=== PATIENT | male | born 1955 | race Caucasian/White ===

== ENCOUNTER 2023-09-18 21:46 | Inpatient (IN) | payer OTHER, SELFPAY ==
[2023-09-18] VITALS (10 sets, daily range): BP systolic 133–195; BP diastolic 76–119; BMI 31.8
--- NOTE | 2023-09-18 16:33 | ED.GENMED ---
History of Present Illness
General
Chief Complaint: Withdrawal Symptoms
Time Seen by Provider: 09/18/23 16:15
Travel History
Have you had any contact with someone who has COVID-19?: No
Do you have any symptoms of coronavirus? Fever > 100 degrees, chills, cough, shortness of breath, sore throat, loss of taste or smell, muscle aches, or headache?: No
History of Present Illness
History of Present Illness:
67-year-old male with history of alcoholic cardiomyopathy and CHF as well as long-term alcohol abuse presents to the emergency department for evaluation of tremors. He states he has been drinking heavily for at least the past 10 months, his last
significant alcohol intake was last night but he did take 1 drink at approximately noon today to help with the 'shakes'. He reports nausea and headaches as well as profound tremors. Denies any suicidal or homicidal ideation. Denies any visual or
auditory hallucinations.
Past History
Past History
ED Past Medical History: HTN
ED Past Surgical History: Orthopedic
Social History
Tobacco: Non-smoker
Alcohol: Occasional
Drug: None
Personal:
Living: with family
Employment: Employed
Review of Systems
Review of Systems
Allergies reviewed?: Yes
All Other Systems: ROS reviewed and negative except as documented in HPI and ROS
Phy Exam
Physical Exam
Physical Exam:
GEN: Ill-appearing, tremulous, nondiaphoretic
Eyes: PERRLA, EOMs intact, no scleral icterus
HENT: NCAT, oral mucosa moist
Lungs: Tachypneic, otherwise clear lungs
Cardiac: RRR, no M/R/G, no peripheral edema. Radial pulses 2+ bilat
Abdomen: S, NT, ND, NABS, no masses or hepatosplenomegaly
Neuro: AO x 3, no focal deficits to BUE/BLE, widespread tremors at rest
MSK: No gross deformity or ecchymosis. No edema. No digital clubbing
Skin: No rashes, petechiae. Normal color, no pallor or jaundice.
Psych: Calm, cooperative, proper hygiene
Course
Orders/Labs/Results
Orders:
Orders
09/18/23 Dinner
Cholesterol Lowering
At Your Request: Full Participation
Cholesterol Lowering: Sodium, 2 Gram
09/18/23 16:33
Lorazepam [Ativan] 1 mg IV NOW STA
Thiamine Injection 200 mg IV NOW STA
09/18/23 16:35
Lactated Ringers [Lr] 1,000 ml IV BOLUS
09/18/23 16:37
Electrocardiogram (*1) Urgent
Reason for Study: Shortness of Breath
EKG- Treatment ONCE
09/18/23 16:51
FOLic ACID [Folvite] 1 mg 0.9% Sodium Chloride 50 ml [Nss] 50 ml IV NOW
09/18/23 16:52
Phenobarbital Sodium [Phenobarbital] 260 mg 0.9% Sodium Chloride 100 ml [Nss] 100 ml IV NOW
09/18/23 17:07
Alcohol Urgent
B-Hydroxybutyrate Urgent
Complete Blood Count/With Diff Urgent
Comprehensive Metabolic Panel Urgent
Lipase Urgent
Magnesium Urgent
Phosphorus Urgent
Prothrombin Time Urgent
09/18/23 17:59
Lorazepam [Ativan] 2 mg IV NOW STA
09/18/23 18:09
Urinalysis Routine
Date Specimen was Collected: 09/18/23
Time Specimen was Collected: 16:51
09/18/23 21:18
Admit/Transfer Patient As Directed
Co-Sign Provider:
Level of Care: Inpatient admission
Assign to:: IMU- Intermediate Care
Physician / Group: richmond osullivan
Diagnosis: alcohol withdrawal/ abuse
Reason for Hospitalization: alcohol withdrawal/ abuse
Expected length of stay greater than two midnights?: Yes
ELOS- Estimated Length of Stay in days: 5
I certify the patient meets the requirements for IP care: Yes
Code Status As Directed
Resuscitation Status: Full Code
09/18/23 23:19
0.9% Sodium Chloride [Nss (Preservative Free)] See Protocol IV PRN PRN
Acetaminophen [Tylenol] 650 mg PO Q4HPRN PRN
FOLic ACID [Folvite] 1 mg 0.9% Sodium Chloride 50 ml [Nss] 50 ml IV DAILYPRN
HydrALAZINE [Apresoline] 10 mg IV Q6HPRN PRN
Lorazepam [Ativan] 1 mg IV Q1HPRN PRN
Lorazepam [Ativan] 1 mg PO Q2HPRN PRN
Lorazepam [Ativan] 2 mg IV Q1HPRN PRN
Ondansetron Injectable [Zofran] 4 mg IV Q6HPRN PRN
09/18/23 23:19
Case Management Consult Once
Case Management Consult: Other
Comment: Substance abuse counseling
DIETARY CONSULT Routine
Reason for Consult: Nutrition support, possible refeeding guidelines
GGTP Urgent
Magnesium Urgent
PTT Urgent
Phosphorus Urgent
Prothrombin Time Urgent
Urinalysis Routine
Date Specimen was Collected: 09/18/23
Time Specimen was Collected: 23:20
Urine Drug Abuse Screen Routine
Date Specimen was Collected: 09/18/23
Time Specimen was Collected: 23:20
Activity As Directed
Activity Level: As Tolerated
Intake/ Output As Directed
Frequency: Per unit guidelines
MSAS SCORE As Directed
MSAS Score 0-4: Repeat MSAS every 2 hours until 0-4 for three consecutive assessments, then every 4 hours x 48
hours.
MSAS Score 5-7: For MILD withdrawl symptoms. Repeat MSAS and RASS every 2 hours
MSAS Score 8-11: For MODERATE withdrawal symptoms. Repeat MSAS and RASS every 1 hour. Consider ICU or IMU
level of care.
MSAS Score > 11: For SEVERE withdrawal symptoms. Repeat MSAS and RASS every 1 hour. Notify provider, consider
ICU level of care.
MSAS Additional Instructions: If no improvement or no decrease in score from severe to moderate within 12
hours, consult psychiatry
MSAS Notify Provider: Notify provider if patient requires more than 10 mg of Lorazepam in eight hour period.
Vital Signs As Directed
Frequency: Per unit guidelines
Weight As Directed
Frequency: Daily
Ot Eval And Treat Routine
Pt Eval And Treat Routine
Activity Level: As Tolerated
DX Deep Vein Thrombosis Video Routine
09/19/23 00:00
Thiamine Injection 200 mg IV Q8
09/19/23 06:00
Cardiovascular Evaluation IN AM
Complete Blood Count/With Diff IN AM
Comprehensive Metabolic Panel IN AM
09/19/23 08:00
Aspirin Low Dose EC [Aspir Low (Enteric Coated)] 81 mg PO DAILY
Atorvastatin [Lipitor] 40 mg PO DAILY
Escitalopram Oxalate [Lexapro] 10 mg PO DAILY
FOLic ACID [Folvite] 1 mg PO DAILY
Metoprolol Xl [Toprol Xl] 50 mg PO DAILY
Pantoprazole [Protonix IV] 40 mg IV DAILY
Phenobarbital Sodium [Phenobarbital] 97.5 mg IV TID
Valsartan [Diovan] 80 mg PO DAILY
09/19/23 18:00
Enoxaparin Sodium [Lovenox] 40 mg SC QPM
09/20/23 06:00
Complete Blood Count/With Diff IN AM
Comprehensive Metabolic Panel IN AM
09/21/23 06:00
Complete Blood Count/With Diff IN AM
Comprehensive Metabolic Panel IN AM
09/21/23 08:00
Phenobarbital [Luminal] 64.8 mg PO TID
09/22/23 06:00
Complete Blood Count/With Diff IN AM
Comprehensive Metabolic Panel IN AM
09/22/23 08:00
Thiamine HCl [Vitamin B1] 100 mg PO BID
09/23/23 08:00
Phenobarbital [Luminal] 32.4 mg PO TID
Abnormal Lab Results
09/18/23
17:07
RDW 14.8 H %
(11.5-14.5)
Absolute Monos (auto) 0.7 H 10^3/uL
(0.1-0.6)
Immature Gran % 0.6 H %
(0-0.5)
Monocytes % 10.2 H %
(1.7-9.3)
BUN 22 H mg/dl
(9-20)
B-Hydroxybutyrate 0.39 H mmol/L
(0.02-0.27)
09/18/23 17:07
09/18/23 17:07
Vital Signs
Initial and Last Documented VS:
Initial Vital Signs
Temp Pulse Resp BP Pulse Ox
97.5 F 91 18 195/119 97
09/18/23 16:03 09/18/23 16:03 09/18/23 16:03 09/18/23 16:03 09/18/23 16:03
Last Documented Vital Signs
Temp Pulse Resp BP Pulse Ox
97.5 F 73 20 133/76 95
09/18/23 16:03 09/18/23 22:15 09/18/23 22:15 09/18/23 22:00 09/18/23 22:15
MDM/Problems Addressed
MDM/Problems Addressed:
Patient's initial presentation concerning for significant alcohol withdrawal however he responded quite well to benzodiazepines and phenobarbital. He does not exhibit clinical signs or symptoms of acute decompensated congestive heart failure. He
was seen by Mary ramos with the hope of placing him in an inpatient detox facility however this will not be feasible tonight thus we will admit him to the hospitalist service for further alcohol withdrawal treatment
*Critical Care Note
Total Time (30-74mins, 75-104mins- exclusive of procedures): Not Applicable
ED Attending Note
-
Portions of this chart may have been created with voice recognition software.� Occasional wrong word or��sound alike� substitutions may have occurred due to the inherent limitations of voice recognition software.
Discharge Plan
Departure
Patient Disposition: Admit
Date of Disposition: 09/18/23
Time of Disposition: 20:45
Admit to: Telemetry
Presentation/result/management discussed w/ accepting MD/DO: Hospitalist
Discharge Problem:
Alcohol withdrawal
Interventions
Interventions:
*Risk Screen - Suicide Last Done: 09/18/23 17:26
*General Assessment Last Done: 09/18/23 17:26
*Neglect/Abuse Screening Last Done: 09/18/23 17:26
*ED COVID-19 Vaccine History Last Done: 09/18/23 17:26
ED- Neurological Assessment Last Done: 09/18/23 17:26
ED-Psychological Assessment Last Done: 09/18/23 17:26
[2023-09-18] MEDS: ATIVAN 1 MG IV (17:00)
[2023-09-18] MEDS: THIAMINE INJECTION 200 MG IV ×2 (17:02→23:55)
[2023-09-18] MEDS: LR 1000 IV (17:05)
[2023-09-18] MEDS: PHENOBARBITAL 104 MG IV ×2 (17:20→23:17)
[2023-09-18 17:21] LABS: % Basophils 0.9 % (0-2); % Eosinophils 2.7 % (0-6); % Immature Granulocytes 0.6 % (0-0.5); % Lymphocytes 23.8 % (20.5-51.1); % Monocytes 10.2 % (1.7-9.3); % Neutrophils 61.8 % (42.2-75.2); Absolute Basophils 0.1 10^3/uL (0-0.2); Absolute Eosinophils 0.2 10^3/uL (0-0.7); Absolute Lymphocytes 1.6 10^3/uL (1.2-3.4); Absolute Monocytes 0.7 10^3/uL (0.1-0.6); Absolute Neutrophils 4.1 10^3/uL (1.4-6.5); Hemoglobin 15.2 g/dL (13.0-18.0); Mean Corp Hgb Conc. 34.5 g/dL (33.0-37.0); Mean Corpuscular Hgb 29.3 pg (27.0-31.0); Mean Corpuscular Volume 84.9 fL (80.0-94.0); Mean Platelet Volume 8.8 fL (7.4-10.4); Nucleated Red Blood Cells % 0 % (-); Platelet Count 134 10^3/uL (130-400); Red Blood Cell Count 5.18 10^6/uL (4.70-6.10); Red Cell Dist. Width 14.8 % (11.5-14.5); White Blood Cell Count 6.7 10^3/uL (4.8-10.8)
[2023-09-18 17:30] LABS: ALT (SGPT) 39 U/L (0-50); AST (SGOT) 46 U/L (17-59); Albumin 4.6 g/dl (3.5-5.0); Alkaline Phosphatase 101 U/L (38-126); Blood Urea Nitrogen 22 mg/dl (9-20); Calcium 8.9 mg/dl (8.4-10.2); Carbon Dioxide 25 mmol/L (22-30); Chloride 104 mmol/L (98-107); Glucose 96 mg/dl (70-99); Lipase 136 U/L (23-300); Magnesium 2.1 mg/dl (1.6-2.3); Phosphorus 3.4 mg/dl (2.5-4.5); Potassium 4.5 mmol/L (3.5-5.1); Sodium 136 mmol/L (135-145); Total Protein 7.4 g/dl (6.3-8.2); eGFR > 60.00
[2023-09-18 17:31] LABS: Alcohol None Detected
[2023-09-18 17:33] LABS: INR 1.02; PT 13.4 Sec (11.4-14.6)
[2023-09-18 17:37] LABS: B-Hydroxybutyrate 0.39 mmol/L (0.02-0.27)
[2023-09-18] MEDS: FOLVITE 50.2000000000000028 MG IV (17:38)
[2023-09-18] MEDS: ATIVAN 2 MG IV (18:13)
[2023-09-18 18:16] LABS: Urine Albumin Negative (Neg - Trace); Urine Bilirubin Negative (Negative); Urine Character Clear (Clear); Urine Color Yellow; Urine Glucose Negative (Negative); Urine Ketone Negative (Negative); Urine Leukocyte Negative (Negative); Urine Nitrite Negative (Negative); Urine Occult Blood Negative (Negative); Urine Specific Gravity 1.005 (<1.030); Urine Urobilinogen Negative (Neg - 1+)
--- NOTE | 2023-09-18 20:53 | HPS.HSE ---
Addendum entered and electronically signed by Guanako Ruffin DO 09/18/23 21:59:
Patient seen and examined independently. Agree with findings and plan as set forth by SINA Chauhan.
Patient is a 67y M with PMH significant for alcohol use disorder and hypertension who presents to ED complaining of withdrawal symptoms including headache, nausea and tremulousness. Patient drinks 1 bottle of vodka daily and has done so x many,
many years. He drank a bottle of vodka yesterday. Today he tried to avoid drinking, but had a shot around noon due to tremors, etc.
He then presented to the ED for further evaluation when his symptoms worsened / progressed.
He had prior detox stay at [facility] and a brief rehab stay in [place].
Ass:
Alcohol Withdrawal
Alcohol Use Disorder
Benign Hypertension
Major Depression
Alcoholic Cardiomyopathy
Plan:
Admit for further evaluation and treatment.
Continue phenobarbital taper.
MSAS protocol and PRN BZDs.
Supportive care, thiamine / folate supplementation, etc.
Follow for clinical improvement.
Original Note:
Family Physician
-
Family Physician: Ean Lopez
Chief Complaint
-
alcohol abuse tremors, headache nausea
History of Present Illness
67-year-old male who reports he has been drinking heavily 1 bottle of vodka 750 mL daily for the past 10 months with large amount of alcohol intake last night but last drink was at noon today. He states he has been drinking for approximately 47
years with a history of 7 years sober at age 52. He was admitted in November 12 [place] then transferred to [place] rehab. After leaving rehab he began drinking again. He presents to the ER complaining of tremors with nausea and headaches. He
denies visual or auditory hallucinations, chest pain, palpitations, shortness breath, cough, abdominal pain, vomiting, diarrhea, fever, chills. He has past medical history of alcohol abuse, hypertension, moderate pulm HTN via heart cath 11/2022,
nonischemic cardiomyopathy EF 35% severe diastolic dysfunction, CHF, depression.
Medical History
Past Medical History
Past Medical History: Reports Other
Additional Past Medical History:
alcohol abuse
hypertension
moderate pulm HTN via heart cath 11/2022,
nonischemic cardiomyopathy EF 35% severe diastolic dysfunction via cardiac cath 11/30/2022,
Diastolic CHF
depression
HLD
Past Surgical History: Reports Other
Additional Past Surgical History:
Left shoulder surgery
Right shoulder surgery
Bilateral knee surgery
Right elbow repair 2018
Right meniscus tear repair 2018
Left thumb surgery
Social History
Tobacco: Non-smoker
Alcohol: Daily (730 mL daily vodka)
Drug: None
Personal:
Living: With Family
Employment: Retired
Family History
Family History: Other (Maternal uncle alcohol abuse, father paranoid schizophrenic committed suicide, paternal aunt paranoid schizophrenia committed suicide, daughter schizophrenic)
Allergies / Home Medications
Allergies reflects when Allergies were last updated in [employer].
Home Medications with original date entered in [employer]
Allergy/Medication List:
Allergies
Allergy/AdvReac Type Severity Reaction Status Date / Time
No Known Allergies Allergy Verified 09/18/23 16:02
Home Medications
amoxicillin 500 mg-potassium clavulanate 125 mg tablet 1 tab PO Q8H 09/18/23
aspirin 81 mg tablet,delayed release 81 mg PO DAILY 09/18/23
atorvastatin 40 mg tablet 40 mg PO DAILY 09/18/23
escitalopram oxalate 10 mg tablet 10 mg PO DAILY 09/18/23
metoprolol succinate 50 mg tablet,extended release 24 hr 50 mg PO DAILY 09/18/23
spironolactone 25 mg tablet 25 mg PO DAILY 09/18/23
valsartan 80 mg tablet 80 mg PO DAILY 09/18/23
Review of Systems
-
History Source: Patient
A 12 point ROS was completed and negative except as noted: Yes
Constitutional: Denies Fever or Chills
EENT: Denies Sore Throat or Runny Nose
Respiratory: Denies Cough or Trouble Breathing
Cardiac: Denies Chest Pain, Diaphoresis, Palpitations or Syncope
Abdomen/GI: Reports Nausea; Denies Abdominal Pain, Vomiting, Diarrhea, Constipated, Bloody Stools or Black Stools
: Denies Dysuria, Frequency, Flank Pain, Incontinence, Difficulty Voiding or Urgency
Musculoskeletal: Denies Joint Pain or Edema
Skin: Denies Itching or Rash
Neurological: Reports Headache and Other (Tremors to hands); Denies Dizzy or Weakness
Endocrine: Reports No Symptoms
Hematologic/Lymphatic: Reports No Symptoms
Psych: Reports Calm
Physical Exam
Vital Signs
Vital Signs
Temp Pulse Resp BP Pulse Ox
97.5 F 91 18 195/119 95
09/18/23 16:03 09/18/23 16:03 09/18/23 16:03 09/18/23 16:03 09/18/23 17:26
Physical Exam
General: Comfortable and Conversant; No Pain, Fever or Chills
HEENT: NormoCephalic, Anicteric, Moist mucous membranes, PERRLA and No Ptosis
Respiratory: Clear; No Wheezes, Rales or Rhonchi
Cardiac: S1/S2 and Regular Rhythm; No Murmur, Rub, Gallop or Peripheral Edema
Breast: Deferred by me
GI: Soft, Non Tender, Non Distended, Normal Bowel Sounds and No Hepatosplenomegaly
Rectal: Deferred by Provider
Genito-urinary: Deferred by me
Musculoskeletal: No Clubbing, No Cyanosis and No Edema
Skin: Warm and Dry; No Rash or Jaundice
Neuro: AO x 3, No Motor Deficits, Nonfocal/grossly intact, Cranial Nerves Intact, No Sensory Deficits and Tremors (Bilateral hands); No Slurred Speech or Facial Droop
Psych: Calm
Laboratory Results
-
09/18/23 17:07
09/18/23 17:07
Laboratory Results
PT 13.4 Sec (11.4-14.6) 09/18/23 17:07
INR 1.02 09/18/23 17:07
Total Bilirubin 1.0 mg/dl (0.2-1.3) 09/18/23 17:07
AST 46 U/L (17-59) 09/18/23 17:07
ALT 39 U/L (0-50) 09/18/23 17:07
Alkaline Phosphatase 101 U/L (38-126) 09/18/23 17:07
Lipase 136 U/L (23-300) 09/18/23 17:07
Impression/Plan
-
Impression/plan:
Admit to IMU
#Acute alcohol withdrawal concern for tremors/alcohol abuse
Drinks 1 bottle 750 mL daily of vodka did have 1 shot of vodka today 09/18/2023 at noon
Alcohol nondetected
B hydroxybutyrate 0.39
-MSAs screen with protocol
-IV thiamine, IV folate, IV Ativan, Iv phenobarb
-IV PPI
PT/OT/case management consult
#Accelerated HTN
BP 195/119 > 154/90
-IV hydralazine as needed SBP> 180
-Continue valsartan 80 mg daily, metoprolol succinate 50 mg daily
#Nonischemic cardiomyopathy/CAD
-Continue atorvastatin 40 mg daily, aspirin 81 mg daily, valsartan 80 mg daily, metoprolol succinate 50 mg daily
-Hold spironolactone 25 mg daily
Cardiac cath 11/2022, nonischemic cardiomyopathy LVEF 35%, moderate pulm HTN severe diastolic dysfunction, 60% lesion in the proximal third of the ramus of LAD
2D echo 03/25/2023: EF 50-55%, no wall abnormalities, normal LVS LVSF
#CHF with diastolic dysfunction
I/O, daily weights
Hold spironolactone
#Depression hx
-Continue Lexapro 10 mg daily
DVT prophylaxis
Subcu Lovenox
Full code
[2023-09-19] VITALS (14 sets, daily range): BP systolic 131–171; BP diastolic 66–99; BMI 31.9
[2023-09-19] MEDS: NSS (PRESERVATIVE FREE) 0.5 ML IV (00:02)
[2023-09-19] MEDS: ATIVAN 1 MG IV ×6 (00:02→22:08)
[2023-09-19] MEDS: MELATONIN 5 MG PO (00:03)
[2023-09-19 00:07] LABS: Urine Albumin Negative (Neg - Trace); Urine Bilirubin Negative (Negative); Urine Character Clear (Clear); Urine Color Yellow; Urine Glucose Negative (Negative); Urine Ketone Negative (Negative); Urine Leukocyte Negative (Negative); Urine Nitrite Negative (Negative); Urine Occult Blood Negative (Negative); Urine Urobilinogen Negative (Neg - 1+)
--- NOTE | 2023-09-19 00:13 | PTCARENOTE ---
pt admitted to IMU. AAOX3. anxious, tremors, and a bit restless. MSAS score 8. NSR in the monitor. + pulses. Lung sounds are WNL, occasional nonproductive dry cough. Pt wears CPAP and brought his own. Shallow breathing. Abd round and obese. C/o
loose stool and nausea. Bed alarm in place. Will cont w/ tx plan.
[2023-09-19 00:16] LABS: INR 1.12; PT 14.4 Sec (11.4-14.6)
[2023-09-19 00:17] LABS: APTT 28.8 Sec (23.4-35.0)
[2023-09-19 00:18] LABS: GGTP 74 U/L (15-73); Magnesium 2.3 mg/dl (1.6-2.3); Phosphorus 3.2 mg/dl (2.5-4.5)
[2023-09-19 00:35] LABS: Amphetamines Negative (Negative); Barbiturates Positive (Negative); Benzodiazepines Positive (Negative); Buprenorphine Negative (Negative); Cocaine Negative (Negative); Marijuana Negative (Negative); Methadone Negative (Negative); Methamphetamines Negative (Negative); Opiates Negative (Negative); Phencyclidine Negative (Negative); Tricyclic Antidepressants Negative (Negative)
[2023-09-19 01:00] LABS: Fentanyl, Urine Negative (Negative)
[2023-09-19 04:52] LABS: % Basophils 0.8 % (0-2); % Eosinophils 7.4 % (0-6); % Immature Granulocytes 0.6 % (0-0.5); % Lymphocytes 32.5 % (20.5-51.1); % Monocytes 11.4 % (1.7-9.3); % Neutrophils 47.3 % (42.2-75.2); Absolute Eosinophils 0.4 10^3/uL (0-0.7); Absolute Lymphocytes 1.7 10^3/uL (1.2-3.4); Absolute Monocytes 0.6 10^3/uL (0.1-0.6); Absolute Neutrophils 2.5 10^3/uL (1.4-6.5); Hematocrit 42.7 % (39.0-52.0); Hemoglobin 14.2 g/dL (13.0-18.0); Mean Corp Hgb Conc. 33.3 g/dL (33.0-37.0); Mean Corpuscular Hgb 29.5 pg (27.0-31.0); Mean Corpuscular Volume 88.8 fL (80.0-94.0); Mean Platelet Volume 8.7 fL (7.4-10.4); Nucleated Red Blood Cells % 0 % (-); Platelet Count 112 10^3/uL (130-400); Red Blood Cell Count 4.81 10^6/uL (4.70-6.10); Red Cell Dist. Width 14.7 % (11.5-14.5); White Blood Cell Count 5.2 10^3/uL (4.8-10.8)
[2023-09-19 05:15] LABS: ALT (SGPT) 32 U/L (0-50); AST (SGOT) 37 U/L (17-59); Albumin 3.6 g/dl (3.5-5.0); Alkaline Phosphatase 82 U/L (38-126); Blood Urea Nitrogen 20 mg/dl (9-20); Calcium 8.4 mg/dl (8.4-10.2); Carbon Dioxide 25 mmol/L (22-30); Chloride 106 mmol/L (98-107); Estimated Creatinine Clearance 103 ml/min; Glucose 107 mg/dl (70-99); HDL Cholesterol 70 mg/dl; LDL Cholesterol, Calculated 63 mg/dl; Potassium 4.3 mmol/L (3.5-5.1); Sodium 134 mmol/L (135-145); Total Bilirubin 0.6 mg/dl (0.2-1.3); Total Cholesterol 158 mg/dl (50-199); Total Protein 6.1 g/dl (6.3-8.2); Triglyceride 129 mg/dl (10-149); Very Low Density Lipoprotein 25 mg/dl (0-30); eGFR > 60.00
[2023-09-19 06:03] LABS: Hepatitis C Antibody Negative (Negative)
[2023-09-19] MEDS: ATIVAN 1 MG PO ×4 (06:03→14:43)
[2023-09-19] MEDS: PHENOBARBITAL 97.5 MG IV ×3 (09:33→21:00)
[2023-09-19] MEDS: DIOVAN 80 MG PO (09:38)
[2023-09-19] MEDS: ASPIR LOW (ENTERIC COATED) 81 MG PO (09:38)
[2023-09-19] MEDS: THIAMINE INJECTION 200 MG IV ×2 (09:39→18:03)
[2023-09-19] MEDS: TOPROL XL 50 MG PO (09:39)
[2023-09-19] MEDS: LEXAPRO 10 MG PO (09:39)
[2023-09-19] MEDS: FOLVITE 1 MG PO (09:39)
[2023-09-19] MEDS: LIPITOR 40 MG PO (09:39)
[2023-09-19] MEDS: PROTONIX IV 40 MG IV (09:40)
[2023-09-19] MEDS: NSS (PRESERVATIVE FREE) 10 ML IV (09:40)
--- NOTE | 2023-09-19 10:42 | W.PN.HOSP.TC ---
Today's Communication/Plan
-
Continue phenobarbital
Restart Aldactone
Monitor mentation
Continue with MSAS
Assessment / Plan
Assessment / Plan
#Acute alcohol withdrawal
#Daily alcohol abuse
-Drinks 1 bottle 750 mL daily of vodka did have 1 shot of vodka today 09/18/2023 at noon
-Alcohol nondetected
-B hydroxybutyrate 0.39
-MSAs screen with protocol
-IV thiamine, IV folate, IV Ativan.
-Continue with phenobarbital protocol.
-Monitor mentation closely. Remains at high risk of severe withdrawal due to severe alcohol usage.
-IV PPI
#Accelerated HTN
#Primary HTN-elevated likely in setting of acute etoh withdrawal
-IV hydralazine as needed
-Continue valsartan 80 mg daily, metoprolol succinate 50 mg daily. Restart Aldactone
-If Persistently elevated increase valsartan and Toprol
#Nonischemic cardiomyopathy/CAD
-Continue atorvastatin 40 mg daily, aspirin 81 mg daily, valsartan 80 mg daily, metoprolol succinate 50 mg daily
-restart spironolactone 25 mg daily
Cardiac cath 11/2022, nonischemic cardiomyopathy LVEF 35%, moderate pulm HTN severe diastolic dysfunction, 60% lesion in the proximal third of the ramus of LAD
2D echo 03/25/2023: EF 50-55%, no wall abnormalities, normal LVS LVSF
#CHF with diastolic dysfunction
I/O, daily weights
restart spironolactone
#Depression hx
-Continue Lexapro 10 mg daily
DVT prophylaxis
Subcu Lovenox
Full code
Anticipated Discharge: > 48 hours
Subjective/Interval History
-
Date of Service: September 19, 2023
States of lightheadedness
Will try to attempt breakfast
States of severe tremors
Objective Data
-
Labs:
Laboratory Results
09/18/23 09/19/23
23:53 04:30
WBC 5.2
Hgb 14.2
Hct 42.7
Plt Count 112 L
PT 14.4
INR 1.12
APTT 28.8
Sodium 134 L
Potassium 4.3
Chloride 106
Carbon Dioxide 25
BUN 20
Creatinine 0.9
Glucose 107 H
Calcium 8.4
Total Bilirubin 0.6
AST 37
ALT 32
Alkaline Phosphatase 82
Vital Signs:
Vital Signs
Temp Pulse Resp BP Pulse Ox
96.9 F L 72 16 166/98 95
09/19/23 08:01 09/19/23 10:00 09/19/23 10:00 09/19/23 10:00 09/19/23 09:22
I&O
09/18/23 09/19/23 09/20/23
06:59 06:59 06:59
Intake Total 480 / 480
Output Total 550 / 550 400 / 400
Balance -70 / -70 -400 / -400
Physical Exam
-
General: Well Developed and No Apparent Distress
HEENT: Normocephalic, Atraumatic and Moist Mucous Membranes
Respiratory: Clear to Auscultation
Cardiac: Regular Rhythm and S1/S2; Negative Murmur, Rub or Gallop
GI: Soft, Nontender, Nondistended and Normal Bowel Sounds; Negative Organomegaly
Rectal: Deferred by Provider
Musculoskeletal: No Clubbing, No Cyanosis and No Edema
Skin: Negative Rash
Neuro: Awake, Alert, Oriented, AO x 3, No Motor Deficits, Tremors and Nonfocal/Grossly Intact
Psych: Calm and Anxious
Data Reviewed
-
Total Time Spent with Patient (in minutes): 55
[2023-09-19 11:30] LABS: Magnesium 2.3 mg/dl (1.6-2.3); Phosphorus 4.3 mg/dl (2.5-4.5)
[2023-09-19] MEDS: ALDACTONE 25 MG PO (11:36)
[2023-09-19] MEDS: APRESOLINE 10 MG IV (11:36)
--- NOTE | 2023-09-19 12:22 | CM ---
Met with patient at bedside; initial assessment completed
Pharmacy verified: [facility] [place] [place]
Patient reported that he lives with his in a 3 story home including basement; 2 steps to enter; 13 steps between floors; railings present; bath and bedroom on the 2nd floor; bath has tub with shower and a grab bar
PLOF: reports when he is sober and not shaking, he is independent with ADLs and Ambulation; drives; reports his is not capable of helping him
Transport: patient drove self to the hospital; and if stable enough to do so will drive himself home
SNF/Rehab/Home Care utilization history: had a stay @ [facility] in November 2022
CM Consult completed; counseling for substance abuse offered. Patient agreeable to meet with [facility] counselor; referral sent to [facility] via phone
Plan: to be determined; CM will continue to follow and support needs when identified
[2023-09-19] MEDS: LOVENOX 40 MG SC (18:03)
--- NOTE | 2023-09-19 19:33 | PTCARENOTE ---
Patient MSAS remains between 5-8 this shift. Patient did become verbally aggressive towards RN later into shift. Patient stated he was also experiencing intense anxiety and was found by multiple staff members attempting to turn off his bed alarm. RN
explained the bed alarm is on so staff knows when he is OOB, as his tremors, weakness, and medications put him at risk for a fall. He was not responsive to this education. RN Let MD Wells know about patient's verbal aggression and pacing/getting
out of bed. 1x 1mg ativan IV given per order. Patient continues with MSAS protocol medications. See MAR/flowsheets for further care details.
[2023-09-19] MEDS: FLUSH (NSS) 3 FLUSH IV (19:54)
[2023-09-20] VITALS (13 sets, daily range): BP systolic 129–166; BP diastolic 68–111; PULSE 80–89; O2SAT 98; BMI 31.0
[2023-09-20] MEDS: THIAMINE INJECTION 200 MG IV ×4 (00:44→23:15)
[2023-09-20] MEDS: ATIVAN 1 MG IV ×2 (03:35→10:17)
--- NOTE | 2023-09-20 03:54 | PTCARENOTE ---
msas max of 8 at times- 5mg ativan so far with phenobarb taper. pt is manageable at this time- ambulates to br with assistance- sinus - htn
[2023-09-20 04:09] LABS: % Basophils 0.7 % (0-2); % Eosinophils 5.4 % (0-6); % Immature Granulocytes 0.6 % (0-0.5); % Lymphocytes 37.1 % (20.5-51.1); % Monocytes 9.5 % (1.7-9.3); % Neutrophils 46.7 % (42.2-75.2); Absolute Eosinophils 0.3 10^3/uL (0-0.7); Absolute Monocytes 0.5 10^3/uL (0.1-0.6); Absolute Neutrophils 2.5 10^3/uL (1.4-6.5); Hematocrit 43.8 % (39.0-52.0); Hemoglobin 15.2 g/dL (13.0-18.0); Mean Corp Hgb Conc. 34.7 g/dL (33.0-37.0); Mean Corpuscular Hgb 29.3 pg (27.0-31.0); Mean Corpuscular Volume 84.6 fL (80.0-94.0); Mean Platelet Volume 8.6 fL (7.4-10.4); Nucleated Red Blood Cells % 0 % (-); Platelet Count 118 10^3/uL (130-400); Red Blood Cell Count 5.18 10^6/uL (4.70-6.10); Red Cell Dist. Width 14.5 % (11.5-14.5); White Blood Cell Count 5.4 10^3/uL (4.8-10.8)
[2023-09-20 04:30] LABS: ALT (SGPT) 35 U/L (0-50); AST (SGOT) 38 U/L (17-59); Albumin 4.1 g/dl (3.5-5.0); Alkaline Phosphatase 88 U/L (38-126); Blood Urea Nitrogen 13 mg/dl (9-20); Calcium 8.9 mg/dl (8.4-10.2); Carbon Dioxide 25 mmol/L (22-30); Chloride 104 mmol/L (98-107); Estimated Creatinine Clearance 103 ml/min; Glucose 96 mg/dl (70-99); Potassium 4.1 mmol/L (3.5-5.1); Sodium 134 mmol/L (135-145); Total Bilirubin 0.8 mg/dl (0.2-1.3); Total Protein 6.6 g/dl (6.3-8.2); eGFR > 60.00
[2023-09-20] MEDS: ASPIR LOW (ENTERIC COATED) 81 MG PO (08:35)
[2023-09-20] MEDS: DIOVAN 80 MG PO (08:35)
[2023-09-20] MEDS: LEXAPRO 10 MG PO (08:37)
[2023-09-20] MEDS: FOLVITE 1 MG PO (08:37)
[2023-09-20] MEDS: ALDACTONE 25 MG PO (08:37)
[2023-09-20] MEDS: LIPITOR 40 MG PO (08:37)
[2023-09-20] MEDS: TOPROL XL 50 MG PO (08:37)
[2023-09-20] MEDS: PROTONIX IV 40 MG IV (08:37)
[2023-09-20] MEDS: NSS (PRESERVATIVE FREE) 10 ML IV (08:38)
[2023-09-20] MEDS: PHENOBARBITAL 97.5 MG IV ×3 (08:38→21:06)
--- NOTE | 2023-09-20 08:48 | W.PN.HOSP.TC ---
Today's Communication/Plan
-
Ongoing alcohol withdrawal, continue current care
Eventual transition to MedSurg once improved
Assessment / Plan
Assessment / Plan
#Acute alcohol withdrawal
#Daily alcohol abuse
-Drinks 1 bottle 750 mL daily of vodka did have 1 shot of vodka today 09/18/2023 at noon
-Blood alcohol negative in ER. BHB 0.39
-MSAS score of 8-12 overnight. requiring IV ativan
-IV thiamine, IV folate, IV Ativan.
-Continue with phenobarbital protocol.
#Accelerated HTN - Improved
#Essential HTN
-elevated likely in setting of acute etoh withdrawal
-IV hydralazine as needed
-Maintain on home medication of metoprolol/spironolactone/valsartan
#Nonischemic cardiomyopathy/CAD
-Continue atorvastatin 40 mg daily, aspirin 81 mg daily, valsartan 80 mg daily, metoprolol succinate 50 mg daily
-restart spironolactone 25 mg daily
-Cardiac cath 11/2022, nonischemic cardiomyopathy LVEF 35%, moderate pulm HTN severe diastolic dysfunction, 60% lesion in the proximal third of the ramus of LAD
-2D echo 03/25/2023: EF 50-55%, no wall abnormalities, normal LVS LVSF
# Chronic diastolic congestive heart failure
-No signs of heart failure exacerbation.
-Not on any Lasix per home medication list.
#Depression hx
-Continue Lexapro 10 mg daily
DVT prophylaxis - Subcu Lovenox
Full code
Anticipated Discharge: > 48 hours
Subjective/Interval History
-
Date of Service: September 20, 2023
Having high MSAS score overnight. Patient required few doses of Ativan
No reported abdominal pain nausea vomiting
Objective Data
-
Labs:
Laboratory Results
09/20/23
03:39
WBC 5.4
Hgb 15.2
Hct 43.8
Plt Count 118 L
Sodium 134 L
Potassium 4.1
Chloride 104
Carbon Dioxide 25
BUN 13
Creatinine 0.9
Glucose 96
Calcium 8.9
Total Bilirubin 0.8
AST 38
ALT 35
Alkaline Phosphatase 88
Vital Signs:
Vital Signs
Temp Pulse Resp BP Pulse Ox
97.7 F 75 16 144/104 96
09/20/23 03:10 09/20/23 08:35 09/20/23 06:00 09/20/23 08:35 09/20/23 06:00
I&O
09/19/23 09/20/23 09/21/23
06:59 06:59 07:59
Intake Total 480 / 480 1200 / 1200
Output Total 550 / 550 1750 / 1750
Balance -70 / -70 -550 / -550
Review of Systems
-
Unable to obtain full review of systems at this time due to: Other (Patient drowsy/sedated from medication)
Physical Exam
-
General: Comfortable; Negative Appears in Distress
HEENT: Negative Oxygen
Respiratory: Clear to Auscultation
Cardiac: Regular Rhythm and S1/S2; Negative Murmur
Neuro: Negative Awake (Somnolent/sedated)
Psych: Calm
--- NOTE | 2023-09-20 12:32 | PTCARENOTE ---
Pt was rec'd from shift production supervisor at 07:15 sleeping. Pt was awakened to order breakfast and obtain daily weight as well as work with PT around 0900. Pt asking for the 'IV meds that helped alot' referring to S[facility]. Education provided re: assessment and
med adminstration per protocol. Later pt asking to put clothing on, tearful, stating he can't stay in hospital as he has 'Too much going on at home'....emotional support provided and encouraged pt to remain in hospital until he is medically safe to
go home, pt in agreement, stating he would probably be tempted to drink if he left the hospital now. Pt medicated per SEP, see worklist for details. Pt tolerating regular diet, worried he has 'damaged his heart' by drinking, knows he has heart
failure. Seated up in chair for approx 2 hours, now resting in bed, sleeping. Will continue to monitor.
[2023-09-20] MEDS: ATIVAN 1 MG PO ×4 (13:40→23:15)
[2023-09-20] MEDS: LOVENOX SC (17:32)
[2023-09-20] MEDS: APRESOLINE 10 MG IV (18:08)
--- NOTE | 2023-09-20 21:00 | PTCARENOTE ---
Received pt from dayshift RN. Pt is AAOx3, MSAS per protocol (see worklist and MAR), anxious, forgetful @ times. NSR on the monitor. On RA during the day O2 sat 96%, lungs clear, pts own CPAP used HS. Pt uses the urinal or BRPx1. Bed alarm in place.
Mouth care provided. Pt is laying comfortable in bed with call berry in reach.
[2023-09-21] VITALS (8 sets, daily range): BP systolic 121–156; BP diastolic 74–95; BMI 30.8
[2023-09-21 05:59] LABS: % Basophils 0.5 % (0-2); % Eosinophils 3.5 % (0-6); % Immature Granulocytes 0.5 % (0-0.5); % Lymphocytes 22.8 % (20.5-51.1); % Monocytes 9.4 % (1.7-9.3); % Neutrophils 63.3 % (42.2-75.2); Absolute Eosinophils 0.2 10^3/uL (0-0.7); Absolute Lymphocytes 1.5 10^3/uL (1.2-3.4); Absolute Monocytes 0.6 10^3/uL (0.1-0.6); Absolute Neutrophils 4.1 10^3/uL (1.4-6.5); Hematocrit 46.2 % (39.0-52.0); Hemoglobin 15.7 g/dL (13.0-18.0); Mean Corpuscular Hgb 28.9 pg (27.0-31.0); Mean Corpuscular Volume 84.9 fL (80.0-94.0); Mean Platelet Volume 8.3 fL (7.4-10.4); Nucleated Red Blood Cells % 0 % (-); Platelet Count 113 10^3/uL (130-400); Red Blood Cell Count 5.44 10^6/uL (4.70-6.10); Red Cell Dist. Width 14.4 % (11.5-14.5); White Blood Cell Count 6.5 10^3/uL (4.8-10.8)
[2023-09-21] MEDS: APRESOLINE 10 MG IV (06:15)
[2023-09-21 06:23] LABS: ALT (SGPT) 33 U/L (0-50); AST (SGOT) 33 U/L (17-59); Alkaline Phosphatase 87 U/L (38-126); Blood Urea Nitrogen 17 mg/dl (9-20); Calcium 9.2 mg/dl (8.4-10.2); Carbon Dioxide 24 mmol/L (22-30); Chloride 102 mmol/L (98-107); Estimated Creatinine Clearance 114 ml/min; Glucose 102 mg/dl (70-99); Sodium 134 mmol/L (135-145); Total Bilirubin 0.8 mg/dl (0.2-1.3); Total Protein 6.7 g/dl (6.3-8.2); eGFR > 60.00
[2023-09-21] MEDS: DIOVAN 80 MG PO (08:58)
[2023-09-21] MEDS: LEXAPRO 10 MG PO (08:58)
[2023-09-21] MEDS: TOPROL XL 50 MG PO (08:58)
[2023-09-21] MEDS: FOLVITE 1 MG PO (08:58)
[2023-09-21] MEDS: ASPIR LOW (ENTERIC COATED) 81 MG PO (08:58)
[2023-09-21] MEDS: LUMINAL 64.7999999999999972 MG PO ×3 (08:58→22:39)
[2023-09-21] MEDS: ALDACTONE 25 MG PO (08:59)
[2023-09-21] MEDS: LIPITOR 40 MG PO (08:59)
[2023-09-21] MEDS: PROTONIX IV 40 MG IV (08:59)
[2023-09-21] MEDS: ATIVAN 1 MG PO ×3 (08:59→19:36)
[2023-09-21] MEDS: NSS (PRESERVATIVE FREE) 10 ML IV (08:59)
[2023-09-21] MEDS: THIAMINE INJECTION 200 MG IV ×2 (09:00→15:30)
[2023-09-21 09:21] LABS: Magnesium 2.1 mg/dl (1.6-2.3); Phosphorus 4.1 mg/dl (2.5-4.5)
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
--- NOTE | 2023-09-21 11:17 | PTCARENOTE ---
Pt rec'd this am from head irrigator, AOx3 with occ forgetfulness and vague orientation, complains of anxiety. Plan discussed with attending Dr. Lake, will consult psych for anxiety management. Pt assist of 1 to use bathroom and stand at bedside to
use urinal, did have large loose BM this am. Meds and assessment as documented, MSAS continues Q4, will continue to monitor closely. Safe environment maintained with bed and chair alarm armed, pt encouraged to utilize call berry as needed.
--- NOTE | 2023-09-21 13:22 | W.PN.HOSP.TC ---
Today's Communication/Plan
-
psych eval
transfer med surg
continue alc withdrawal protocol
Assessment / Plan
Assessment / Plan
#Acute alcohol withdrawal
#Daily alcohol abuse
-Drinks 1 bottle 750 mL daily of vodka did have 1 shot of vodka today 09/18/2023 at noon
-Blood alcohol negative in ER. BHB 0.39
-MSAS score of 8-12 overnight. requiring IV Ativan
-IV thiamine, IV folate, IV Ativan.
-Continue with phenobarbital protocol.
-Patient complains of feeling anxious, although already on phenobarb/Ativan. Psychiatry involved for further evaluation. Patient planning to see neuropsychiatry post discharge.
-Briefly discussed alcohol rehab and patient wants to do outpatient alcohol rehab only.
#Accelerated HTN - Improved
#Essential HTN
-elevated likely in setting of acute etoh withdrawal
-IV hydralazine as needed
-Maintain on home medication of metoprolol/spironolactone/valsartan
#Nonischemic cardiomyopathy/CAD
-Continue atorvastatin 40 mg daily, aspirin 81 mg daily, valsartan 80 mg daily, metoprolol succinate 50 mg daily
-restart spironolactone 25 mg daily
-Cardiac cath 11/2022, nonischemic cardiomyopathy LVEF 35%, moderate pulm HTN severe diastolic dysfunction, 60% lesion in the proximal third of the ramus of LAD
-2D echo 03/25/2023: EF 50-55%, no wall abnormalities, normal LVS LVSF
# Chronic diastolic congestive heart failure
-No signs of heart failure exacerbation.
-Not on any Lasix per home medication list.
#Depression hx
-Continue Lexapro 10 mg daily
DVT prophylaxis - Subcu Lovenox
Full code
Anticipated Discharge: 24 - 48 hours
Subjective/Interval History
-
Date of Service: September 21, 2023
patient voicing of being anxious. somewhat sedated in my opinion
continues to require
no other issues overnight
Objective Data
-
Labs:
Laboratory Results
09/21/23
05:38
WBC 6.5
Hgb 15.7
Hct 46.2
Plt Count 113 L
Sodium 134 L
Potassium 4.0
Chloride 102
Carbon Dioxide 24
BUN 17
Creatinine 0.8
Glucose 102 H
Calcium 9.2
Total Bilirubin 0.8
AST 33
ALT 33
Alkaline Phosphatase 87
Vital Signs:
Vital Signs
Temp Pulse Resp BP Pulse Ox
98.1 F 85 18 134/78 94
09/21/23 08:24 09/21/23 12:00 09/21/23 12:00 09/21/23 10:00 09/21/23 10:00
I&O
09/20/23 09/21/23 09/22/23
05:59 06:59 06:59
Intake Total 240 / 240
Output Total 200 / 200
Balance 40 / 40
Review of Systems
-
Cardiac: Reports No Symptoms
Abdomen/GI: Reports No Symptoms
Breast: Reports No Symptoms
Physical Exam
-
General: Comfortable; Negative Appears in Distress
HEENT: Negative Oxygen
Respiratory: Clear to Auscultation
Cardiac: Regular Rhythm and S1/S2; Negative Murmur
Neuro: Awake and Alert; Negative Oriented
Psych: Calm
--- NOTE | 2023-09-21 16:06 | PTCARENOTE ---
Pt much more oriented and cooperative, steady gait this afternoon. Sitting up in chair and ringing for assistance this afternoon. Pt verbalizes understanding to continue using call berry. Standby assistance to walk to bathroom, x2 BMs so far today.
Continuing to monitor. Med Surg orders continue.
--- NOTE | 2023-09-21 17:00 | PTCARENOTE ---
Addendum entered by Philip Forman RN 09/21/23 17:34:
Pt shaved, showered at this time. Linens changed. Pt steady on feet, ringing appropriately for assistance.
Original Note:
Per Dr. Lake, pt ok to shower.
[2023-09-21] MEDS: LOVENOX 40 MG SC (17:51)
[2023-09-21] MEDS: ZOFRAN 4 MG IV (19:26)
--- NOTE | 2023-09-21 20:13 | PTCARENOTE ---
Pt improved today. Pt c/o nausea, PRN Zofran given (see MAR). MSAS score of 5, PRN Ativan given (see worklist and MAR). Pt is laying comfortable in bed with call berry in reach.
[2023-09-21] MEDS: MELATONIN 5 MG PO (22:58)
[2023-09-22 05:23] VITALS: BMI 30.8
[2023-09-22 06:03] LABS: % Basophils 0.7 % (0-2); % Eosinophils 3.7 % (0-6); % Immature Granulocytes 0.4 % (0-0.5); % Lymphocytes 30.1 % (20.5-51.1); % Monocytes 9.7 % (1.7-9.3); % Neutrophils 55.4 % (42.2-75.2); Absolute Basophils 0.1 10^3/uL (0-0.2); Absolute Eosinophils 0.3 10^3/uL (0-0.7); Absolute Lymphocytes 2.1 10^3/uL (1.2-3.4); Absolute Monocytes 0.7 10^3/uL (0.1-0.6); Absolute Neutrophils 3.9 10^3/uL (1.4-6.5); Hematocrit 46.8 % (39.0-52.0); Hemoglobin 15.7 g/dL (13.0-18.0); Mean Corp Hgb Conc. 33.5 g/dL (33.0-37.0); Mean Corpuscular Hgb 29.2 pg (27.0-31.0); Mean Platelet Volume 8.8 fL (7.4-10.4); Nucleated Red Blood Cells % 0 % (-); Platelet Count 105 10^3/uL (130-400); Red Blood Cell Count 5.38 10^6/uL (4.70-6.10); Red Cell Dist. Width 14.5 % (11.5-14.5)
[2023-09-22 06:21] LABS: ALT (SGPT) 32 U/L (0-50); AST (SGOT) 35 U/L (17-59); Albumin 3.8 g/dl (3.5-5.0); Alkaline Phosphatase 85 U/L (38-126); Blood Urea Nitrogen 23 mg/dl (9-20); Calcium 8.7 mg/dl (8.4-10.2); Carbon Dioxide 22 mmol/L (22-30); Chloride 104 mmol/L (98-107); Estimated Creatinine Clearance 91 ml/min; Glucose 97 mg/dl (70-99); Potassium 4.2 mmol/L (3.5-5.1); Sodium 132 mmol/L (135-145); Total Bilirubin 0.8 mg/dl (0.2-1.3); Total Protein 6.6 g/dl (6.3-8.2); eGFR > 60.00
[2023-09-22 08:31] VITALS: BP 120/70
[2023-09-22] MEDS: TOPROL XL 50 MG PO (08:31)
[2023-09-22] MEDS: LEXAPRO 20 MG PO (08:32)
[2023-09-22] MEDS: LUMINAL 64.7999999999999972 MG PO (08:32)
[2023-09-22] MEDS: VITAMIN B1 100 MG PO (08:32)
[2023-09-22] MEDS: ALDACTONE 25 MG PO (08:32)
[2023-09-22] MEDS: LIPITOR 40 MG PO (08:32)
[2023-09-22] MEDS: FOLVITE 1 MG PO (08:32)
[2023-09-22] MEDS: PROTONIX IV 40 MG IV (08:32)
[2023-09-22] MEDS: DIOVAN 80 MG PO (08:32)
[2023-09-22] MEDS: ASPIR LOW (ENTERIC COATED) 81 MG PO (08:32)
[2023-09-22] MEDS: NSS (PRESERVATIVE FREE) 10 ML IV (08:33)
[2023-09-22 08:37] VITALS: BP 120/70
--- NOTE | 2023-09-22 09:26 | PTCARENOTE ---
Patient AAOx3. C/o anxiety. No other complaints. VSS. Continuing to monitor.
--- NOTE | 2023-09-22 11:59 | W.PN.HOSP.TC ---
Today's Communication/Plan
-
dc home
op f/u
refusing inpatient rehab
Assessment / Plan
Assessment / Plan
#Acute alcohol withdrawal
#Daily alcohol abuse
-Drinks 1 bottle 750 mL daily of vodka did have 1 shot of vodka today 09/18/2023 at noon
-Blood alcohol negative in ER. BHB 0.39
-thaimine, folate and ativan per [facility] protocol.
-Continue with phenobarbital protocol and can be stopped on dc. .
- Psychiatry involved for further evaluation. Patient planning to see neuropsychiatry post discharge.
-Counseled once again for complete etoh cessation. Told him of risk of worsening cardiomyopathy, liver failure, cirrhosis etc.
-Briefly discussed alcohol rehab and patient wants to do outpatient alcohol rehab only. Does not want inpatient rehab.
-d/w with Psych-does not recommend disulfiram as high risk for medical complications.
#Accelerated HTN - Improved
#Essential HTN
-elevated likely in setting of acute etoh withdrawal
-IV hydralazine as needed
-Maintain on home medication of metoprolol/spironolactone/valsartan
#Nonischemic cardiomyopathy/CAD
-Continue atorvastatin 40 mg daily, aspirin 81 mg daily, valsartan 80 mg daily, metoprolol succinate 50 mg daily
-restart spironolactone 25 mg daily
-Cardiac cath 11/2022, nonischemic cardiomyopathy LVEF 35%, moderate pulm HTN severe diastolic dysfunction, 60% lesion in the proximal third of the ramus of LAD
-2D echo 03/25/2023: EF 50-55%, no wall abnormalities, normal LVS LVSF
# Chronic diastolic congestive heart failure
-No signs of heart failure exacerbation.
-Not on any Lasix per home medication list.
#Depression hx
-Continue Lexapro 10 mg daily
DVT prophylaxis - Subcu Lovenox
Full code
d/w with psych
More than 30 minutes spent in discharge including
Final examination of the patient
Summarizing hospital stay
Instructions for continuing care to all relevant caregivers
Preparation of discharge records, prescriptions, and referral forms
Total time spent (in minutes): 45
Anticipated Discharge: Today
Subjective/Interval History
-
Date of Service: September 22, 2023
states didn't get much sleep
feeling better
tolerating diet
No tremors
Objective Data
-
Labs:
Laboratory Results
09/22/23
05:30
WBC 7.0
Hgb 15.7
Hct 46.8
Plt Count 105 L
Sodium 132 L
Potassium 4.2
Chloride 104
Carbon Dioxide 22
BUN 23 H
Creatinine 1.0
Glucose 97
Calcium 8.7
Total Bilirubin 0.8
AST 35
ALT 32
Alkaline Phosphatase 85
Vital Signs:
Vital Signs
Temp Pulse Resp BP Pulse Ox
97.6 F 85 20 120/70 98
09/22/23 07:20 09/22/23 08:37 09/22/23 08:37 09/22/23 08:37 09/21/23 22:48
I&O
09/21/23 09/22/23 09/23/23
06:59 06:59 06:59
Intake Total 480 / 480
Output Total 550 / 550
Balance -70 / -70
Physical Exam
-
General: Well Developed and No Apparent Distress
HEENT: Normocephalic, Atraumatic and Moist Mucous Membranes
Respiratory: Clear to Auscultation
Cardiac: Regular Rhythm and S1/S2; Negative Murmur, Rub or Gallop
GI: Soft, Nontender, Nondistended and Normal Bowel Sounds; Negative Organomegaly
Rectal: Deferred by Provider
Musculoskeletal: No Clubbing, No Cyanosis and No Edema
Skin: Negative Rash
Neuro: Awake, Oriented, AO x 3, No Motor Deficits and Nonfocal/Grossly Intact
Psych: Calm
--- NOTE | 2023-09-22 12:46 | W.DCSUMMARY ---
Discharge Summary
Discharge Data
Date of Admission: 09/18/23
Date of Discharge: 09/22/23
-
Pending Results: No
Hospital Course
67-year-old male past medical history of daily alcohol abuse, chronic HFrEF, nonischemic cardiomyopathy, depression, anxiety presenting from home with complaints of alcohol withdrawal symptoms including headache and nausea tremors. Patient with
significant heavy alcohol usage on a daily basis. Patient stated drinking 1 bottle of vodka daily. Patient was started on alcohol withdrawal protocol with IV Ativan. Patient was also started on phenobarbital alcohol withdrawal protocol. Patient
with accelerated hypertension due to acute alcohol withdrawal and was started on IV medications intermittently. Patient's withdrawal symptoms slowly started to improve. Psych was consulted. Psych recommended to increasing dose of Lexapro for
severe anxiety. Patient tremors resolved. Patient was tolerating diet. Patient without any nausea or vomiting. Patient refused inpatient detox rehabilitation and stated he will do outpatient aggressive rehab therapy. Patient will be discharged
home.
Discharge Plan
-
Patient Disposition: Home (Routine Discharge)
Discharge Diagnosis/Procedures: Acute alcohol withdrawal
Alcohol abuse
Accelerated hypertension secondary to acute alcohol withdrawal
Anxiety
Condition: Fair
Diet: 2 Gram Sodium and Restrict fluids to 48 oz
Activity: With assistance and As tolerated
Driving Restrictions: As prior to admission
Instructions: Alcohol Withdrawal (DC), Alcohol Use Disorder (DC)
Referrals:
Ean Lopez PA-C [Family Provider] - in less than 1 week
Prescriptions:
New
escitalopram oxalate 20 mg Tablet
20 mg PO DAILY 30 Days Qty: 30 0RF
Continued
atorvastatin 40 mg tablet
40 mg PO DAILY
metoprolol succinate 50 mg tablet extended release 24 hr
50 mg PO DAILY
valsartan 80 mg tablet
80 mg PO DAILY
spironolactone 25 mg tablet
25 mg PO DAILY
aspirin 81 mg Tablet,Delayed Release (Dr/Ec)
81 mg PO DAILY
Discontinued
amoxicillin-pot clavulanate 500-125 mg tablet
1 tab PO Q8H
escitalopram oxalate 10 mg tablet
10 mg PO DAILY
Discharge Orders:
Discharge Patient (As Directed); Ordered 09/22/23
Ordered By: Joshua Wells
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
--- NOTE | 2023-09-22 14:09 | PTCARENOTE ---
Reviewed DC paperwork with patient. All questions answered. IV removed. Pneumonia vacc given. BCARES saw patient. Discussed sobriety with patient. All belongings with patient.
[2023-09-22] MEDS: PREVNAR 20 0.5 ML IM (14:13)
[2023-09-22 14:35] VITALS: BP 144/88
--- NOTE | 2023-09-22 15:56 | CM ---
Patient with Dx Acute alcohol withdrawal, Daily alcohol abuse, Accelerated HTN. Psych Consult noted.
Met with patient who was preparing for d/c. The patient says he feels ready to go home today. IMM completed. He agrees to speak with TEQUILA today and says he is interested in doing an outpatient Etoh program. He plans on driving himself home.
Spoke with TEQUILA Law; she met with the patient today and he agreed to do [facility], an outpatient program.
Plan home today with TEQUILA referral to [facility].
== END 2023-09-22 14:32 | disposition home or self-care (01) | DRG 897 ==
LOC: IMU 21:46
PROVIDERS: Clinical Nurse Specialist Family Health; Physician Assistant; ADMITTING PHYSICIAN Hospitalist; ATTENDING PHYSICIAN Hospitalist; CONSULT PHYSICIAN Psychiatry & Neurology Psychiatry; EMERGENCY PHYSICIAN Emergency Medicine; FAMILY PHYSICIAN Physician Assistant Medical
PROC: 3E0234Z Introduction of Serum, Toxoid and Vaccine into Muscle, Percutaneous Approach (ICD-10-PCS; 2023-09-22)
DX: F10.139 Alcohol abuse with withdrawal, unspecified (principal); I42.8 Other cardiomyopathies; I50.32 Chronic diastolic (congestive) heart failure; I15.8 Other secondary hypertension; R25.1 Tremor, unspecified; F32.9 Major depressive disorder, single episode, unspecified; I25.10 Atherosclerotic heart disease of native coronary artery without angina pectoris; F41.9 Anxiety disorder, unspecified; F43.10 Post-traumatic stress disorder, unspecified; I27.20 Pulmonary hypertension, unspecified; E78.5 Hyperlipidemia, unspecified; Z81.8 Family history of other mental and behavioral disorders; Z81.1 Family history of alcohol abuse and dependence; Z79.82 Long term (current) use of aspirin; Z62.810 Personal history of physical and sexual abuse in childhood; Z23 Encounter for immunization
CPT/HCPCS: 80053; 80061; 80306; 80307; 81003; 82010; 82077; 82977; 83690; 83735; 84100; 85025; 85610; 85730; 86803; 90677; 93005; 96361; 96374; 96375; 97163; 97167; 99285; G0009

== ENCOUNTER → 2023-09-30 10:48 | Outpatient (REF) | payer OTHER, SELFPAY | LOC: DHCBC MAIN 10:48 | PROVIDERS: ATTENDING PHYSICIAN Internal Medicine Cardiovascular Disease; FAMILY PHYSICIAN Physician Assistant Medical | DX: I42.8 Other cardiomyopathies (principal); I50.22 Chronic systolic (congestive) heart failure | CPT/HCPCS: 93306 ==

== ENCOUNTER 2024-03-29 10:33 | Emergency (ER) | payer OTHER, SELFPAY ==
[2024-03-29] VITALS (8 sets, daily range): BP systolic 115–164; BP diastolic 71–100; BMI 31.9
--- NOTE | 2024-03-29 11:22 | ED.GENMED ---
History of Present Illness
General
Chief Complaint: Withdrawal Symptoms
Source: patient
Exam Limitations: none
Time Seen by Provider: 03/29/24 10:56
Nursing documentation reviewed up to this point in time: agreed with
History of Present Illness
History of Present Illness:
68-year-old male past medical history of CHF, alcohol abuse presenting to the emergency department today with concerns of alcohol withdrawal symptoms. He claims that he is had this many times in the past no history of alcohol withdrawal seizures or
DTs. Also claims that he had a few falls over the past few days and did hit his head does have a headache at this point. Had some mild left-sided chest pain denies any specifically at this moment in time no shortness of breath he does claim been
feeling very agitated anxious he has had an ongoing tremor without exertion or activity he has had ongoing nausea without specific vomiting.
Past History
Past History
ED Past Medical History: HTN
ED Past Surgical History: Orthopedic
Social History
Tobacco: Non-smoker
Alcohol: Occasional
Drug: None
Personal:
Living: with family
Employment: Employed
Review of Systems
Review of Systems
Allergies reviewed?: Yes
All Other Systems: ROS reviewed and negative except as documented in HPI and ROS
Phy Exam
Physical Exam
Physical Exam:
GENERAL: Alert , ongoing tremor at rest somewhat agitated and sweaty
EYE: pupils equal and reactive
NECK: Supple, no significant adenopathy.
ENT: o/p clr, mmm.
CARDIAC: Regular rate and rhythm .
LUNGS: Clear breath sounds bilaterally, no acute respiratory distress, no wheezes/rales/rhonchi
ABDOMEN: Soft, without focal tenderness, no r/g, no cvat
NEUROLOGICAL: Alert and oriented, no focal neuro deficits
SKIN: Warm and dry, skin intact.
MUSCULOSKELETAL: No edema, well perfused.
PSYCH: Normal and appropriate interaction.
Course
Orders/Labs/Results
Orders:
Orders
03/29/24 10:39
Electrocardiogram (*1) Urgent
Reason for Study: Chest Pain
EKG- Treatment ONCE
03/29/24 11:05
Cardiac Monitoring- Treatment ONCE
Urinalysis Reflex To Culture Urgent
0.9% Sodium Chloride 500 ml [Nss] 500 ml IV BOLUS
Lorazepam [Ativan] 2 mg IV NOW STA
Metoclopramide [Reglan] 10 mg IV NOW STA
Multivitamin [Theragran] 1 tablet PO NOW STA
Thiamine HCl [Vitamin B1] 100 mg PO NOW STA
03/29/24 11:06
CT Head W/o Iv Contrast Urgent
Comment:
Reason For Exam: fall hit head 2 days ago
03/29/24 11:32
Complete Blood Count/With Diff Urgent
Comprehensive Metabolic Panel Urgent
Lipase Urgent
03/29/24 13:58
Ketorolac [Toradol] 30 mg IV NOW STA
03/29/24 15:18
Lorazepam [Ativan] 2 mg IV NOW STA
Abnormal Lab Results
03/29/24
11:32
RDW 14.7 H %
(11.5-14.5)
Plt Count 106 L 10^3/uL
(130-400)
Absolute Neuts (auto) 7.7 H 10^3/uL
(1.4-6.5)
Absolute Lymphs (auto) 1.0 L 10^3/uL
(1.2-3.4)
Absolute Monos (auto) 1.0 H 10^3/uL
(0.1-0.6)
Neutrophils % 78.7 H %
(42.2-75.2)
Lymphocytes % 10.1 L %
(20.5-51.1)
Monocytes % 10.4 H %
(1.7-9.3)
Sodium 134 L mmol/L
(135-145)
BUN 25 H mg/dl
(9-20)
Glucose 133 H mg/dl
(70-99)
Total Bilirubin 2.2 H mg/dl
(0.2-1.3)
03/29/24 11:32
03/29/24 11:32
Vital Signs
Initial and Last Documented VS:
Initial Vital Signs
Temp Pulse Resp BP Pulse Ox
98.7 F 106 20 164/100 99
03/29/24 10:41 03/29/24 10:41 03/29/24 10:41 03/29/24 10:41 03/29/24 10:41
Last Documented Vital Signs
Temp Pulse Resp BP Pulse Ox
98.2 F 68 19 130/78 97
03/29/24 17:11 03/29/24 17:00 03/29/24 17:00 03/29/24 17:00 03/29/24 17:11
MDM/Problems Addressed
MDM/Problems Addressed:
68-year-old male presenting to the emergency department today with concerns of alcohol withdrawal. Tequila bottle per day over the last few days he claims that he has a long history of alcohol abuse and recently relapsed over the past few days.
Currently patient has a CIWA score in the 20s. Concerning this patient was given dose of Ativan as well as fluids he was given a multivitamin and thiamine. Patient given initial dose of Ativan with significant improvement of symptoms with
resolution of tremor and patient now able to sleep. He elevated some slight recurrence of symptoms a few hours after the initial dose was given a second dose of Ativan then symptoms fully resolved once again slept for multiple hours was woken able
to stand up walk appeared well he claimed to get a ride from the ER and will not drive he was written for a few extra doses of Valium at home to and otherwise will follow-up closely as an outpatient. Return precautions given.
*Critical Care Note
Total Time (30-74mins, 75-104mins- exclusive of procedures): Not Applicable
ED Attending Note
-
Portions of this chart may have been created with voice recognition software.� Occasional wrong word or��sound alike� substitutions may have occurred due to the inherent limitations of voice recognition software.
Discharge Plan
Departure
Patient Disposition: Home (Routine Discharge)
Date of Disposition: 03/29/24
Time of Disposition: 18:30
Patient with high blood pressure during this ER visit?: No
Condition: Good
Covid-19: Not Applicable
Discharge Problem:
Alcohol withdrawal
Instructions: Alcohol Withdrawal (DC), Alcohol Use Disorder (DC)
Prescriptions:
New
diazepam 10 mg tablet
See Rx Instructions .ROUTE .COMPLEX 1 Days Qty: 7 0RF
Rx Instructions:
10 mg Q8 hours Friday (3 doses), Q12 hours on Friday (2 doses), 1 dose at night /Friday.
No Action
atorvastatin 40 mg tablet
40 mg PO DAILY
metoprolol succinate 50 mg tablet extended release 24 hr
50 mg PO DAILY
valsartan 80 mg tablet
80 mg PO DAILY
spironolactone 25 mg tablet
25 mg PO DAILY
aspirin 81 mg Tablet,Delayed Release (Dr/Ec)
81 mg PO DAILY
escitalopram oxalate 10 mg tablet
10 mg PO DAILY
tadalafil 10 mg tablet
10 mg PO DAILYPRN PRN (Reason: ed)
Referrals:
Ean Lopez PA-C [Family Provider] -
Activity Restrictions/Additional Instructions:
You came to the emergency department today with concerns of alcohol withdrawal. You had improvement after receiving benzodiazepines here. Please take the prescribed Valium 3 doses tomorrow 2 doses the next day and 1 dose of the 2 following days to
help with ongoing symptoms and to taper off of the medication. Return to the emergency department for any worsening, new or concerning symptoms.
Interventions
Interventions:
*Risk Screen - Suicide Last Done: 03/29/24 10:41
*General Assessment Last Done: 03/29/24 11:18
*Neglect/Abuse Screening Last Done: 03/29/24 11:18
*ED COVID-19 Vaccine History Last Done: 03/29/24 11:18
ED- Neurological Assessment Last Done: 03/29/24 12:26
ED-Psychological Assessment Last Done: 03/29/24 12:26
Discharge Date and Time
Print Language: SPANISH
[2024-03-29] MEDS: NSS 500 IV (11:27)
[2024-03-29] MEDS: VITAMIN B1 100 MG PO (11:28)
[2024-03-29] MEDS: THERAGRAN 1 TABLET PO (11:28)
[2024-03-29] MEDS: ATIVAN 2 MG IV ×2 (11:28→15:21)
[2024-03-29] MEDS: REGLAN 10 MG IV (11:28)
[2024-03-29 11:56] LABS: % Basophils 0.3 % (0-2); % Eosinophils 0.1 % (0-6); % Immature Granulocytes 0.4 % (0-0.5); % Lymphocytes 10.1 % (20.5-51.1); % Monocytes 10.4 % (1.7-9.3); % Neutrophils 78.7 % (42.2-75.2); Absolute Neutrophils 7.7 10^3/uL (1.4-6.5); Hematocrit 50.7 % (39.0-52.0); Hemoglobin 17.3 g/dL (13.0-18.0); Mean Corp Hgb Conc. 34.1 g/dL (33.0-37.0); Mean Corpuscular Hgb 29.2 pg (27.0-31.0); Mean Corpuscular Volume 85.6 fL (80.0-94.0); Mean Platelet Volume 8.8 fL (7.4-10.4); Nucleated Red Blood Cells % 0 % (-); Platelet Count 106 10^3/uL (130-400); Red Blood Cell Count 5.92 10^6/uL (4.70-6.10); Red Cell Dist. Width 14.7 % (11.5-14.5); White Blood Cell Count 9.8 10^3/uL (4.8-10.8)
[2024-03-29 11:58] LABS: ALT (SGPT) 32 U/L (0-50); AST (SGOT) 41 U/L (17-59); Albumin 4.7 g/dl (3.5-5.0); Alkaline Phosphatase 87 U/L (38-126); Blood Urea Nitrogen 25 mg/dl (9-20); Calcium 9.7 mg/dl (8.4-10.2); Carbon Dioxide 23 mmol/L (22-30); Chloride 99 mmol/L (98-107); Estimated Creatinine Clearance 94 ml/min; Glucose 133 mg/dl (70-99); Lipase 90 U/L (23-300); Potassium 4.8 mmol/L (3.5-5.1); Sodium 134 mmol/L (135-145); Total Bilirubin 2.2 mg/dl (0.2-1.3); Total Protein 7.3 g/dl (6.3-8.2); eGFR > 60.00
[2024-03-29] MEDS: TORADOL 30 MG IV (14:27)
== END 2024-03-29 18:58 | disposition home or self-care (01) ==
LOC: EMR 10:33
PROVIDERS: Physician Assistant; EMERGENCY PHYSICIAN Emergency Medicine; FAMILY PHYSICIAN Physician Assistant Medical
DX: F10.939 Alcohol use, unspecified with withdrawal, unspecified (principal); S09.90XA Unspecified injury of head, initial encounter; W19.XXXA Unspecified fall, initial encounter; I11.0 Hypertensive heart disease with heart failure; I50.9 Heart failure, unspecified
CPT/HCPCS: 99285; 96374; 96375 ×2; 96376; 96361; 70450; 80053; 83690; 85025; 93005

== ENCOUNTER → 2024-10-27 09:29 | Outpatient (REF) | payer OTHER, SELFPAY | LOC: HWRAD 09:29 | PROVIDERS: ATTENDING PHYSICIAN Specialist; FAMILY PHYSICIAN Physician Assistant Medical | DX: F07.81 Postconcussional syndrome (principal); R51.9 Headache, unspecified | CPT/HCPCS: 70450 ==